=== PATIENT | male | born 1970 | race Caucasian/White ===

== ENCOUNTER 2019-09-09 07:17 | Emergency (ER) | payer MEDICARE ==
[~2019-09-09] VITALS: Ht 182.9 cm; Wt 99.8 kg
--- OUTSIDE RECORDS SUMMARY | ~2019-09-09 | XMS | Clinical Summary ---
Demographics + + + | Address | [address] | | | [place] [address] | + + + | Home Phone | | + + + | Preferred Language | Unknown | + + + | Marital Status | | + + + | Protestant Affiliation | Unknown | + + + | Race | Unknown | + + + | Ethnic Group | Unknown | + + + Author + + + | Author | [facility] | | | and [place] | + + + | Organization | [facility] | | | and [place] | + + + | Address | Unknown | + + + | Phone | Unavailable | + + + Support + + +---------+ + | Name | Relationship | Address | Phone | + + +---------+ + | Karoline | ECON | Unknown | Unavailable | | [place] | | | | + + +---------+ + Care Team Providers + +------+ + | Care Telegraph Dispatcher Name | Role | Phone | + +------+ + PCP | Unavailable | + +------+ + Allergies No Known Allergies Medications + + + +---------+------+------+-------+ | Medication | Sig | Dispensed | Refills | Star | End | Statu | | | | | | t | Date | s | | | | | | Date | | | + + + +---------+------+------+-------+ | azithromycin | Take 4 tablets PO as | 4 | 0 | 08/1 | | Activ | | (ZITHROMAX) 250 mg | a single dose. | tablet | | 1/20 | | e | | tablet | | | | 17 | | | + + + +---------+------+------+-------+ Active Problems Not on file Social History + +-------+ +--------+------+ | Tobacco Use | Types | Packs/Day | Years | Date | | | | | Used | | + +-------+ +--------+------+ | Never Smoker | | | | | + +-------+ +--------+------+ + + + | Sex Assigned at | Date Recorded | | | | + + + | Not on file | | + + + + + + + | Job Start Date | Occupation | Industry | + + + + | Not on file | Not on file | Not on file | + + + + + + + + | Travel History | Travel Start | Travel End | + + + + + + | No recent travel history available. | + + Last Filed Vital Signs + + + + + | Vital Sign | Reading | Time Taken | Comments | + + + + + | Blood Pressure | 128/76 | 11/10/2016 2:50 PM | | | | | PDT | | + + + + + | Pulse | 70 | 11/10/2016 2:50 PM | | | | | PDT | | + + + + + | Temperature | 36.9 C (98.5 F) | 11/10/2016 2:50 PM | | | | | PDT | | + + + + + | Respiratory Rate | 16 | 11/10/2016 2:50 PM | | | | | PDT | | + + + + + | Oxygen Saturation | - | - | | + + + + + | Inhaled Oxygen | - | - | | | Concentration | | | | + + + + + | Weight | 98.9 kg (218 lb) | 11/10/2016 2:50 PM | | | | | PDT | | + + + + + | Height | 180.3 cm (5' 11") | 11/10/2016 2:50 PM | | | | | PDT | | + + + + + | Body Mass Index | 30.4 | 11/10/2016 2:50 PM | | | | | PDT | | + + + + + Plan of Treatment + + + + + | Health Maintenance | Due Date | Last Done | Comments | + + + + + | Vaccine: | | | | | Dtap/Tdap/Td (1 - | 0 | | | | Tdap) | | | | + + + + + | Vaccine: Zoster (1 | | | | | of 2) | 9 | | | + + + + + | Vaccine: Influenza | | | | | (Season Ended) | 0 | | | + + + + + Results Not on filefrom Last 3 Months
--- OUTSIDE RECORDS SUMMARY | ~2019-09-09 | XMS | Encounter Summary ---
Demographics + + + | Address | [address] | | | [place] [address] | + + + | Home Phone | | + + + | Preferred Language | Unknown | + + + | Marital Status | | + + + | Cheondoism Affiliation | Unknown | + + + | Race | Unknown | + + + | Ethnic Group | Unknown | + + + Author + + + | Author | [facility] | | | and [place] | + + + | Organization | [facility] | | | and [...] Team Providers + +------+ + | Care Shellfish Grower Name | Role | Phone | + +------+ + PCP | Unavailable | + +------+ + Encounter Details +--------+ + + + + | Date | Type | Department | Care Team | Description | +--------+ + + + + | 11/10/ | Orders Only | [facility] | Digna Chirinos, | | | 2016 | | [address] | MARKETING STRATEGIST [address] | | | | | [place], [place] | [place] | | | | | [address] | [place] [address] | | | | | [phone] | [phone] | | | | | | | | +--------+ + + + + Social History + +-------+ +--------+------+ | Tobacco [...] recent travel history available. | + + documented as of this encounter Plan of Treatment Not on filedocumented as of this encounter Procedures + +--------+ + + + | Procedure Name | Priori | Date/Time | Associated Diagnosis | Comments | | | ty | | | | + +--------+ + + + | HISTORICAL | Routin | 11/10/2016 | | Results for this | | MICROBIOLOGY RESULT | e | 3:31 PM | | procedure are in the | | | | PDT | | results section. | + +--------+ + + + | OVA AND PARASITE | Routin | 11/10/2016 | | Results for this | | EXAMINATION | e | 3:30 PM | | procedure are in the | | | | PDT | | results section. | + +--------+ + + + | FECAL LEUKOCYTES | Routin | 11/10/2016 | | Results for this | | | e | 3:30 PM | | procedure are in the | | | | PDT | | results section. | + +--------+ + + + | CULTURE, YERSINIA | Routin | 11/10/2016 | | Results for this | | STOOL | e | 3:29 PM | | procedure are in the | | | | PDT | | results section. | + +--------+ + + + | CULTURE, STOOL | Routin | 11/10/2016 | | Results for this | | | e | 3:28 PM | | procedure are in the | | | | PDT | | results section. | + +--------+ + + + documented in this encounter Results HISTORICAL MICROBIOLOGY RESULT (11/10/2016 3:31 PM PDT) + + | Specimen | + + | Stool specimen | | (specimen) | + + + + + | Narrative | Performed At | + + + | GIARDIA ANTIGEN NEGATIVE No Giardia | EXTERNAL LAB | | lamblia antigen detected by ICA | | + + + + +---------+ + + | Performing | Address | City/State/Zipcode | Phone Number | | Organization | | | | + +---------+ + + | EXTERNAL LAB | | | | + +---------+ + + Ova and Parasite Examination (11/10/2016 3:30 PM PDT) + + | Specimen | + + | Stool specimen | | (specimen) | + + + + + | Narrative | Performed At | + + + | Specimen Description STOOL CULTURE | EXTERNAL LAB | | SPECIMEN DESCRIPTION: | | | [facility] | | | NO OVA OR PARASITES SEEN | | + + + + +---------+ + + | Performing | Address | City/State/Zipcode | Phone Number | | Organization | | | | + +---------+ + + | EXTERNAL LAB | | | | + +---------+ + + Fecal leukocytes (11/10/2016 3:30 PM PDT) + + | Specimen | + + | Stool specimen | | (specimen) | + + + + + | Narrative | Performed At | + + + | FECAL WHITE CELLS NONE SEEN NORMAL | EXTERNAL LAB | | RANGE: NONE SEEN to 1+ | | + + + + +---------+ + + | Performing | Address | City/State/Zipcode | Phone Number | | Organization | | | | + +---------+ + + | EXTERNAL LAB | | | | + +---------+ + + Culture, Yersinia Stool (11/10/2016 3:29 PM PDT) + + | Specimen | + + | Stool specimen | | (specimen) | + + + + + | Narrative | Performed At | + + + | Specimen Description STOOL CULTURE | EXTERNAL LAB | | NO YERSINIA SPECIES ISOLATED | | + + + + +---------+ + + | Performing | Address | City/State/Zipcode | Phone Number | | Organization | | | | + +---------+ + + | EXTERNAL LAB | | | | + +---------+ + + Culture, Stool (11/10/2016 3:28 PM PDT) + + | Specimen | + + | Stool specimen | | (specimen) | + + + + + | Narrative | Performed At | + + + | Specimen Description STOOL CULTURE | EXTERNAL LAB | | NEGATIVE FOR SHIGA TOXIN TYPE 1 | | | AND 2. NEGATIVE | | | FOR SALMONELLA, SHIGELLA AND CAMPYLOBACTER | | | IF A VIBRIO IS SUSPECTED, PLEASE CONTACT | | | THE MICRO LAB FOR SPECIAL TESTING. | | + + + + +---------+ + + | Performing | Address | City/State/Zipcode | Phone Number | | Organization | | | | + +---------+ + + | EXTERNAL LAB | | | | + +---------+ + + documented in this encounter Visit Diagnoses Not on filedocumented in this encounter"
--- OUTSIDE RECORDS SUMMARY | ~2019-09-09 | XMS | Encounter Summary ---
Demographics + + + | Address | [address] | | | [place] [address] | + + + | Home Phone | | + + + | Preferred Language | Unknown | + + + | Marital Status | | + + + | Sabianism Affiliation | Unknown | + + + | Race | Unknown | + + + | Ethnic Group | Unknown | + + + Author + + + | Author | [facility] | | | and [place] | + + + | Organization | [facility] | | | [...] Team Providers + +------+ + | Care Field Contact Technician Name | Role | Phone | + +------+ + PCP | Unavailable | + +------+ + Encounter Details +--------+ + + + + | Date | Type | Department | Care Team | Description | +--------+ + + + + | 11/10/ | Orders Only | [facility] | Digna Chirinos, | | | 2016 | | [address] | METAL BED ASSEMBLER [address] | | | | | [place], [place] | [place] | | | | | [address] | [place] [address] | | | | | [phone] | [phone] | | | | | | | [...]
--- OUTSIDE RECORDS SUMMARY | ~2019-09-09 | XMS | Clinical Summary ---
Demographics + + + | Address | [address] | | | [place] [address] | + + + | Home Phone | | + + + | Preferred Language | Unknown | + + + | Marital Status | | + + + | Mandaen Affiliation | Unknown | + + + | Race | Unknown | + + + | Ethnic Group | Unknown | + + + Author + + + | Author | [facility] | | | and [place] | + + + | Organization | [facility] | | [...] Team Providers + +------+ + | Care Sewing Machine Repairer Helper Name | Role | Phone | + [...]
--- NOTE | 2019-09-12 14:51 | CONS ---
[facility] [address], [place] [address] Signed DATE OF CONSULTATION: 09/09/2019 REQUESTING PHYSICIAN: Jose Manuel Forrester MD. PROBLEM: Progressively symptomatic umbilical hernia. HISTORY OF PRESENT ILLNESS: This 48-year-old white man is known to me from the past having undergone bilateral inguinal hernia repair. The patient works partly in [employer] and continues to be active in his work. He has had recurrence of a bulging hernia at the umbilicus, which is exquisitely painful to him. In each case, he has had reduction of the hernia, though sometimes it is somewhat delayed. Indeed, he called my office a few days ago, anticipating evaluation. He is set up for an appointment on this week. He presented to the emergency room today and evaluated by Dr. Forrester due to severe pain of the hernia. Dr. Forrester's thorough evaluation included examination which showed reduction of a hernia in the area of the umbilicus. He was somewhat tender at the time of reduction but with reduction is improved. The patient recounts recurrent episodes of bulging of the hernia at the umbilicus, but with manipulation and in particular lying flat reduction of the hernia is noted. He has had no other particular problem, specifically no urinary outlet obstructive symptoms, chronic cough or constipation. PAST MEDICAL HISTORY: Is as previously described including bilateral inguinal hernia. He is otherwise healthy. REVIEW OF SYSTEMS: Denies any shortness of breath or chest pain. He has had no dysuria or hematuria, urinary hesitancy. Denies constipation or chronic cough. PHYSICAL EXAMINATION: GENERAL: This is a pleasant white man, who looks heavier than the last time I saw in the past few years. NECK: Trachea is midline. CHEST: Shows normal respiratory excursion without tachypnea. HEART: Regular. ABDOMEN: Somewhat obese. There is in lying in the supine position, a palpable hernia Electronically Signed By: ELISABET HAYES MD 09/12/19 1451 PATIENT NAME: DUANE GOOD CONSULTATION DATE OF : 66 REPORT #: [id number] PHYSICIAN: ELISABET HAYES MD PCP: SOLOMON LEPE MD REPORT IS CONFIDENTIAL AND NOT TO BE RELEASED WITHOUT AUTHORIZATION [facility] [address], [place] [address] Signed which with manipulation does reduce. It is slightly tender. There is no sign of erythema. EXTREMITIES: Show no clubbing, cyanosis, or edema. ASSESSMENT: He clearly has a recurrently protruding umbilical hernia. The fascial defect is about two fingerbreadths nearly 3 cm. It is not strictly incarcerated at this time, though it is symptomatic and progressively so. In general terms, I would recommend repair at the earliest possible convenience. Due to his health plan ([facility]), our previous attempts at organizing for repair have been aborted. He is in a health plan that has restrictive access, although the hospitalist contracted with this particular entity and our office is not and has not been so listed to be in the past. He will be discharged anticipating further efforts at administrative review to allow for hernia repair. If not available locally, certainly there would be a surgeon capable of repair in the [facility] system even though it is more than 200 miles away. We will do our best to assist him with this. He will be calling the office and likely keep his appointment scheduled for this week. MD LENNOX Tran/MODL /[id number] cc: MD Solomon Rice MD Copies: JOSE MANUEL FORRESTER MD, RUSSELL BARR MD ~ Electronically Signed By: ELISABET HAYES MD 09/12/19 1451 PATIENT NAME: DUANE GOOD CONSULTATION DATE OF : 66 REPORT #: [id number] PHYSICIAN: ELISABET HAYES MD PCP: SOLOMON LEPE MD REPORT IS CONFIDENTIAL AND NOT TO BE RELEASED WITHOUT AUTHORIZATION
== END 2019-09-09 08:44 | disposition home or self-care (01) ==
LOC: ED 07:17
DX: K42.9 Umbilical hernia without obstruction or gangrene (principal); Z88.8 Allergy status to other drugs, medicaments and biological substances
CPT/HCPCS: 99283

== ENCOUNTER 2019-09-17 08:30 | Day surgery (SDC) | payer MEDICARE ==
[~2019-09-17] VITALS: Ht 180.3 cm; Wt 113.4 kg
--- NOTE | 2019-09-17 11:06 | NUR ---
09/17/19 1106 Sheets,Sharon 1057 PT ARRIVED TO PACU ON 6L VIA MASK, RESP EVEN AND UNLABORED. VSS. ORAL AIRWAY IN PLACE. 1100 PT WAKES TO PAINFUL STIMULI AND STARTS COUGHING. RN BRACING PT ABD AND TOBACCO BUYER AT BEDSIDE AND PULLING ORAL AIRWAY. O2 MASK REMAINS IN PLACE. 1105 PT ASLEEP AND SMALL AMOUNT OF SNORING NOTED. RESP EVEN AND UNLABORED.
--- NOTE | 2019-09-17 11:27 | NUR ---
PT IS BACK TO FROM PACU. HE IS BACK TO HIS BASELINE. HE REPORTS NO PAIN. CALL LIGHT WITHIN REACH. NO ADDITIONAL NEEDS.
--- NOTE | 2019-09-17 12:31 | NUR ---
PT IS TOLERATING ORAL LIQUIDS AND FOOD. WOULD LIKE TO WAIT A LITTLE LONGER TO GO TO THE BATHROOM. CALL LIGHT WITHIN REACH. NO ADDITIONAL NEEDS.
[2019-09-17] MEDS ORDERED: NORCO 5-325 TA1 EACH PO (12:44)
--- NOTE | 2019-09-17 13:45 | NUR ---
KEVIN 1325: PT TURNS ON HIS CALL LIGHT. HE WOULD LIKE TO GET UP AND USE THE RESTROOM. HE REPORTS FEELING LIKE HE EMPTIED HIS BLADDER. PT IS EDUCATED ON HOW TO BEST DRESS HIMSELF AND TO OPEN HIS CURTAIN WHEN HE IS READY TO GO.
--- NOTE | 2019-09-17 13:46 | NUR ---
PT IS GIVEN VERBAL DC INSTRUCTIONS, HE VERBALIZES UNDERSTANDING. QUESTIONS ARE ASKED AND ANSWERED. HE IS TAKEN TO VEHICLE IN WC, HE IS ABLE TO TRANSFER HIMSELF.
--- NOTE | 2019-09-18 07:31 | OR ---
[facility] [address] [place], [place] [address] Signed DATE OF OPERATION: 09/17/2019 SURGEON: Marcos Franco MD PREOPERATIVE DIAGNOSIS: Reducible umbilical hernia (7 mm). POSTOPERATIVE DIAGNOSIS: Reducible umbilical hernia (7 mm). PROCEDURES: Primary umbilical herniorrhaphy with intraabdominal Ventralex mesh (4.3 cm). ESTIMATED BLOOD LOSS: None. INDICATIONS: Duane is a 48-year-old gentleman, who I have known for quite a few years at our local sports teams. His son and my son happened to be the same age. 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 It is heavy work. He has to crawl down tunnels and so forth. He has been through 2 previous inguinal hernia repairs in the past. He is quite familiar with mesh. He was having a cough back in April 2019. He thought ripping and pain at the umbilicus. He said he continues to have symptoms strictly when he is lifting. On three separate occasions, he has had to lay down and reduced the hernia. One day it was quite significant, so he crawled back out of the tunnel, left his partner behind and he went to the emergency room. They were able to reduce the hernia. He finally was asked to see me with respect to the above. In the office, we could certainly feel the hernia, but I was not completely convinced. I reduced the extent that I could feel the fascial edges. I explained to Duane this could be an umbilical hernia or epigastric hernia. Either way would be the same incision and the same repair. I gave him our brochure on hernias and went through it page by page. He understands the nature of an umbilical and/or epigastric hernia. We had reviewed the difference between the primary suture repair and the mesh repair. He understands expected intraop and postop course. There is risk of surgery including, but not limited to bleeding, infection, scarring, change in contour of the skin, damage to the bowel, infection of mesh requiring removal, recurrent hernias, and chronic pain. He had expressed understanding and wished to proceed. PROCEDURE NOTE: I met with Duane in our preop area. We both agreed it was umbilicus and we marked that Electronically Signed By: MARCOS FRANCO MD 09/18/19 0731 PATIENT NAME: DUANE GOOD OPERATIVE REPORT DATE OF : 66 REPORT #: [id number] PHYSICIAN: MARCOS FRANCO MD PCP: SOLOMON LEPE MD REPORT IS CONFIDENTIAL AND NOT TO BE RELEASED WITHOUT AUTHORIZATION [facility] [address], [place] [address] Signed appropriately. After this, Duane was taken into the operating room and placed in supine position under general endotracheal tube anesthesia. He was given preoperative antibiotics along with subcutaneous heparin. SCDs were utilized. He was then prepped and draped in the usual sterile fashion. We utilized our standard infraumbilical transverse incision and carried that down around the umbilicus bluntly and with the cautery. We the hernia sac from the fascia with the help of the cautery. We were able to reduce the fat back into the abdomen. The fascial defect was about 7 mm in diameter. We checked and could not appreciate an epigastric hernia. We used our 4.3 cm round Ventralex mesh and we placed that in the abdomen, brought it up, flushed against the posterior abdominal wall. We closed the fascial defect transversely with a running #1 Prolene suture. Several passes of the suture went through the tab on the mesh to help hold it in place. The tab was then cut, flushed with the abdominal wall and discarded. Local anesthetic was then injected in the abdominal wall and the subcutaneous tissues. The wound was irrigated and suctioned out until clear. The umbilical skin was held down to the midline fascia with an interrupted 2-0 PDS suture. The dermis was reapproximated with interrupted 3-0 subcuticular Monocryl sutures. The skin edges were reapproximated with a running 6-0 fast absorbing plain gut suture. Dry gauze and tape were then applied. Duane was awakened from his anesthesia, extubated in the OR, and taken to recovery room in stable condition. Marcos Franco MD ALB/MODL /[id number] cc: Chart Filed Incomplete MD Solomon Hebert MD Copies: CHART FILED INCOMPLETE MARCOS FRANCO MD Electronically Signed By: MARCOS FRANCO MD 09/18/19 0731 PATIENT NAME: DUANE GOOD OPERATIVE REPORT DATE OF : 66 REPORT #: [id number] PHYSICIAN: MARCOS FRANCO MD PCP: SOLOMON LEPE MD REPORT IS CONFIDENTIAL AND NOT TO BE RELEASED WITHOUT AUTHORIZATION [facility] [address] [facility] [place], [place] [address] Signed SOLOMON LEPE MD ~ Electronically Signed By: MARCOS FRANCO MD 09/18/19 0731 PATIENT NAME: DUANE GOOD SARAI OPERATIVE REPORT DATE OF : 66 REPORT #: [id number] PHYSICIAN: MARCOS FRANCO MD PCP: SOLOMON LEPE MD REPORT IS CONFIDENTIAL AND NOT TO BE RELEASED WITHOUT AUTHORIZATION
== END 2019-09-17 13:45 | disposition home or self-care (01) ==
LOC: DS 08:30
PROVIDERS: Colon & Rectal Surgery
PROC: 0WUF0JZ Supplement Abdominal Wall with Synthetic Substitute, Open Approach (ICD-10-PCS; principal; 2019-09-17 09:45)
DX: K42.9 Umbilical hernia without obstruction or gangrene (principal); Z98.890 Other specified postprocedural states
CPT/HCPCS: 00750; C1781; J0690; J1100; J1644; J1885; J2001; J2405; J2704; J3010; J7121

== ENCOUNTER 2020-02-26 09:05 | Inpatient (IN) | payer MEDICARE ==
[~2020-02-26] VITALS: Ht 180.3 cm; Wt 101.8 kg
[~2020-02-26 09:05] MED LIST: NORCO 5-325 TA1 EACH PO
--- NOTE | 2020-02-26 15:45 | NUR ---
PT ADMITTED TO UNIT VIA STRETCHER JUST AFTER 1500. VSS. SATING 91% ON RA, DENIES SOB AND DESATS TO 88-89% W/ EXERTION. BREATHING APPEARS UNLABORED. HAS HX OF SLEEP APNEA, WILL BRING CPAP TONIGHT. PT C/O DRY COUGH. OTHERWISE DENIES PAIN AND NAUSEA. AFEBRILE. VSS. WORKING ON ACAPELLA AND IS. PLACED ON 1 L O2 VIA NC FOR SATS >90%. CALL LIGHT IN REACH. RT TO EVALUATE. UNABLE TO LISTEN TO LUNG SOUNDS D/T PAPR.
--- NOTE | 2020-02-26 17:30 | NUR ---
PT UP TO CHAIR TO EAT DINNER. RT INCREASED O2 TO 2L NC, NOW SATING 93-95%. VSS. BILAT CRACKLES HEARD IN BASES PER RT. PT HAS BEEN ON TELE AND INDEPENDENT IN ROOM. VOIDS IN IN URINAL BUT USES BATHROOM NEEDED.
--- NOTE | 2020-02-26 20:15 | NUR ---
SITTING UP IN CHAIR. USING ACAPELLA AND IS ON OWN. INDEPENDENT IN ROOM.
--- NOTE | 2020-02-26 21:06 | NUR ---
WAS GIVEN ROBITUSSIN WITH CODEINE FOR DRY COUGH.
--- NOTE | 2020-02-26 23:11 | NUR ---
SLEEPING WITH CPAP IN PLACE.
--- NOTE | 2020-02-27 00:05 | NUR ---
PT SLEEPING SOUNDLY WITH CPAP IN PLACE WITH 2L OXYGEN BLED IN. SATS DEC TO 85%. PT AWAKENED AND ASKED TO TURN TO SIDE. ALSO 02 INC TO 3L. SATS UP TO 95% WHEN AWAKENED.
--- NOTE | 2020-02-27 01:00 | NUR ---
IS AWAKE BUT WITH CPAP IN PLACE. LAYING ON SIDE. SATS 94-96%.
--- NOTE | 2020-02-27 03:26 | NUR ---
IS SLEEPING ON BACK , CPAP IN PLACE. SAT5 92-93%, 3L OXYGEN BLED IN.
--- NOTE | 2020-02-27 05:30 | NUR ---
PT AWAKE, CONT TO HAVE CPAP IN PLACE IN CASE HE GOES TO SLEEP. PT STATED THAT WHEN HE DESATURATED EARLIER HE FOUND THAT THE 02 TUBING WHERE BLED INTO HIS CPAP HAD COME OFF AND HE PUT IT BACK. LABS DRAWN. VERY TALKATIVE.
--- NOTE | 2020-02-27 08:30 | NUR ---
IN TO GIVE MORNING MEDS AND COMPLETED ASSESSMENT. PT SATING 97% ON 3L NC. BREATHING APPEARS UNLABORED. PT DENIES PAIN, SOB, OR NAUSEA. WEANED DOWN TO 1 L NC, SATING 96%. PT UP ON COUCH EATING BREAKFAST. EATING AND DRINKING WELL. VOIDS IN URINAL IN BATHROOM. 20 G IV IN LFA PATENT, REMDESIVIR INFUSION COMPLETE. PT HAS NO OTHER NEEDS AT THIS TIME. INDEPENDENT IN ROOM. CALL LIGHT IN REACH.
--- NOTE | 2020-02-27 10:05 | NUR ---
PT HAS BEEN ON ROOM AIR FOR APPROX 30 MIN. SATING 94-96%. SAYS HE "FEELS GOOD". STILL HAS A DRY, UNPRODUCTIVE COUGH. RR 16-20. NO ACCESSORY MUSCLE USE NOTED. PT UP AND WALKING AROUND. DR SR HAS BEEN IN TO ASSESS PT THIS MORNING. PT IS WITHOUT COMPLAINT AT THIS TIME.
--- NOTE | 2020-02-27 12:27 | NUR ---
PT UP WALKING AROUND ROOM, TALKING ON PHONE. REFUSED LUNCH. SAYS HE WAS ON DIET AT HOME WHERE HE WAS EATING ONLY ONE MEAL A DAY AND WOULD FAST THE REMAINDER OF THE TIME. DENIES PAIN, OR NAUSEA. STILL HAS OCCASIONAL DRY NON-PRODUCTIVE COUGH. RECEIVED TESSLON PERLES THIS MORNING BUT HAS NOT REQUIRED OTHER COUGH SUPPRESSANTS AT THIS TIME. HOLDING OFF ON BED BATH FOR POSSIBLE ROOM CHANGE WITH A SHOWER. NO FURTHER NEEDS AT THIS TIME. CALL LIGHT IN REACH
[2020-02-27] MEDS ORDERED: MULTI VITAMIN1 EACH PO (14:17)
--- NOTE | 2020-02-27 14:17 | NUR ---
MED REC COMPLETE
--- NOTE | 2020-02-27 15:29 | NUR ---
PT UP IN CHAIR. VSS. AFEBRILE. PT REMAINS ON RA SATING 97%. RR 20. UNLABORED BREATHING, NO ACCESSORY MUSCLE USE. PT CONTINUES TO WORK WITH I.S. AND ACAPELLA EVERY HOUR. OCCASIONAL COUGH. NOTIFIED IT IS LIKELY HE WILL BE MOVED TO A ROOM WITHI A SHOWER. PT REFUSING DINNER SAYING HE WOULD LIKE TO CONTINUE FASTING TIL BREAKFAST TOMORROW. DENIES NAUSEA OR PAIN. REPORTS HE'S CONTENT AT THE MOMENT. INDEPENDENT IN ROOM.
--- NOTE | 2020-02-27 17:02 | NUR ---
Spoke with Aidan. He states he plans to go home when remdesivir complete. He was tested x 2 for covid as he did not feel he was +. After the second test he became sick. Other around him have been ill, so he has been isolating. Denies needs to go home. Off 02 all day today.
--- NOTE | 2020-02-27 18:28 | NUR ---
pt moved to 126. Tele removed for shower. Pt has had a good day and remains without complaints. Denies any nausea or pain. Has had an occasional cough throughout the day, appears to be more prompted by pt talking. In shower now and calls appropriately.
--- NOTE | 2020-02-27 20:00 | NUR ---
RECEIVED REPORT FROM [facility]. pt RESTING IN BED, WATCHING TV. O2 SATS 88% SUSTAINED ON ROOM AIR. NOTIFIED pt. UP WALKING, USED IS AND CPT. O2 SATS INCREASED 94%. ENCOURAGED pt TO SIT UP MORE WHILE RESTING. pt DENIED NEEDS AT THIS TIME. REQUESTED PRN COUGH MEDICATION AT 2100. EMPTIED URINAL. CALL LIGHT WITHIN REACH. DR TRUIJLLO ON UNIT, UPDATED, STATED NO NEED TO ECG MONITORING JUST CPOX.
--- NOTE | 2020-02-27 21:15 | NUR ---
IN TO DO ASSESSMENT. pt WALKING AROUND TALKING ON THE PHONE. DISCUSSED RESPIRATORY CARE. pt VERBALIZED UNDERSTANDING OF PRONING. ASSESSMENT DONE. PRN COUGH MED PER REQUEST. pt HAS DRY COUGH. SETTLED FOR THE NIGHT. NO FURTHER REQUESTS AT THIS TIME. CALL LIGHT WITHIN REACH.
--- NOTE | 2020-02-28 00:28 | NUR ---
ROUNDED ON pt. RESTING ON LEFT SIDE, CPAP ON. CALL LIGHT WITHIN REACH. O2 SAT <94% FOR APPROX 1 HOUR, INCREASED AFTER CHECKING ON pt.
--- NOTE | 2020-02-28 00:44 | NUR ---
REASSESSED pt. O2 SATS REMAIN LESS THAN 94% ON ROOM AIR WITH CPAP. BLED IN 2L O2 VIA CPAP. O2 SAT 94%. pt WOKE TO NOISE, NO REQUESTS AT THIS TIME. CALL LIGHT WITHIN REACH.
--- NOTE | 2020-02-28 01:22 | NUR ---
O2 SAT 95% ON 2L VIA CPAP.
--- NOTE | 2020-02-28 03:21 | NUR ---
ROUNDED ON pt. RESTING IN BED WITH EYES CLOSED, CPAP IN PLACE. O2 SAT 95% WITH 2L. CALL LIGHT WITHIN REACH.
--- NOTE | 2020-02-28 04:55 | NUR ---
O2 SAT <90%. OPENED DOOR TO ROOM, pt WOKE SAT IMMEDIATELY INCREASED, pt TO TRY SLEEPING IN A DIFFERENT POSITION, WAS FLAT ON BACK. CALL LIGHT WITHIN REACH.
--- NOTE | 2020-02-28 06:00 | NUR ---
IN TO DO ASSESSMENT. pt RESTING IN BED WORKING ON PHONE. CPAP ON. ASSESSMENT DONE. URINAL EMPTIED, VITALS RECORDED. TALKED ABOUT PLAN OF CARE AND pt's EMPLOYMENT FOR SOME TIME. NO CHANGES FROM PRIOR ASSESSMENT. NO REQUESTS AT THIS TIME. CALL LIGHT WITHIN REACH.
--- NOTE | 2020-02-28 07:47 | NUR ---
REPORT RECEIVED FROM NIGHTSHIFT RN, WILL CONTINUE PLAN OF CARE.
--- NOTE | 2020-02-28 08:00 | NUR ---
Patient laying in bed with CPAP in place with 2L bleed-in. SpO2 in the mid-90's, RR even and unlabored. Patient independent in room, ambulating with no SOB noted. Up to chair for breakfast. Warm cloth provided to wash face. Vital signs taken. Water refreshed, patient denies further needs at this time. Call light within reach.
--- NOTE | 2020-02-28 09:04 | NUR ---
PT WAS WALKING AROUND ON ROOM AIR ALERT AND ORIENTED IN ROOM. PT REPORTS NO PAIN AT THIS TIME AND NO SHORTNESS OF BREATH. MEDICATIONS ADMINISTERED AND PT STARTED ON IV REMDESIVIR AT ORDERED RATE. PT REPORTS NO FURTHER NEEDS AT THIS TIME. PT STATES HE HAS BEEN PRONING AND USING RESPIRATORY DEVICES. BED IN LOWEST POSITION, CALL LIGHT WITHIN REACH, WILL CONTIUE PLAN OF CARE.
--- NOTE | 2020-02-28 11:11 | NUR ---
IV REMDESIVIR COMPLETE, PT SALINE LOCKED. PT REPORTS NO PAIN OR SHORTNESS OF BREATH AT THIS TIME. LINENS WERE CHANGED WHILE PT. TOOK A SHOWER. PT NEEDED NO ASSISTANCE AND IS NOW BACK IN HIS BEDROOM. PT REPORTS NO NEEDS AFTER SHOWER. PT STATED HE WILL BE SKIPPING LUNCH. WILL CONTINUE PLAN OF CARE.
--- NOTE | 2020-02-28 12:17 | NUR ---
PT STANDING UP LOOKING OUT OF WINDOW WHEN CHECKED ON. PT REPORTS NO PAIN OR SHORTNESS OF BREATH. PT STATED THAT HE DID SOME EXERCISES AFTER GETTING OUT OF THE SHOWER SUCH JUMPING JACKS AND PUSHUPS AND WALL CLIMBERS. PT STATED WHEN HE CHECKED HIS SPO2 IT WAS AT 88%. THIS WAS DONE WHILE ON ROOM AIR. PT REPORTED NO FEELINGS OF LIGHTHEADEDNESS OR SHORTNESS OF BREATH WHILE DOING THEM AND ONLY NOTICED HIS LOW SPO2 BECAUSE HE HAD CHECKED HIS TELEMETRY. PT NOW SITTING AT BEDSIDE CHAIR ON THE PHONE. HE REPORTS NO FURTHER NEEDS AND HAS REFUSED LUNCH DUE TO HIS DIETARY PRACTICE OF FASTING. WILL CONTINUE PLAN OF CARE.
--- NOTE | 2020-02-28 15:17 | NUR ---
PT SITTING AT BEDISDE CHAIR LOOKING OUTSIDE OF WINDOW. PT ALERT AND ORIENTED ON ROOM AIR. PT REPORTS NO SHORTNESS OF BREATH OR DIFFICULTY BREATHING AT THIS TIME. PT STATES HE HAS BEEN PRONING AND USING HIS RESPIRATORY DEVICES ON HIS OWN. PT REPORTS NO PAIN AT THIS TIME. PT REPORTS NO FURTHER NEEDS AT THIS TIME ASIDE FROM WATER WHICH HAS BEEN GIVEN. WILL CONTINUE PLAN OF CARE.
--- NOTE | 2020-02-28 18:40 | NUR ---
PT CHECKED ON. PT SITTING IN BEDSIDE CHAIR AWAKE AND ALERT. PT REPORTS NO NEEDS ASIDE FROM MORE WATER WHICH WAS OBTAINED FOR HIM. PT AWAKE, ALERT, ON ROOM AIR AND REPORTS NO FURTHER NEEDS. WILL CONTINUE PLAN OF CARE.
--- NOTE | 2020-02-28 19:20 | NUR ---
report recieved from [facility] rn. care of patient assumed at this time. Pt in bed watching television, spo=94% on room air. denies needs at this time.
--- NOTE | 2020-02-28 21:15 | NUR ---
IN ROOM TO COMPLETE ASSESSMENT AND FOR MEDICATION ADMINISTRATION. PT ALERT AND ORIENTED. DENIES NAUSEA OR SHORTNESS OF BREATH. GIEN PRN MEDICATION FOR COUGH. PT PLACED ON CPAP AT THIS TIME WITH 2 L OF 02 BLED INTO HOME MACHINE. SPO2 94 PERCENT AT THIS TIME. REFILLED PT WATER. PLAN OF CARE FOR EVENING DISCUSSED. CALL LIGHT WITHIN REACH. NO FURTHER NEEDS AT THIS TIME.
--- NOTE | 2020-02-29 | NUR ---
PT SLEEPING. CPAP IN PLACE. BREATHING EVEN AND UNLABORED RR=16. SPO2 IN THE MID 90'S. CALL LIGHT WITHIN REACH. NO FURTHER ASSESSED NEEDS AT THIS TIME.
--- NOTE | 2020-02-29 02:00 | NUR ---
PT ASLEEP. RESPIRATIONS OBSERVED. BREATHING EVEN AND UNLABORED. RR =18 SPO2 = 94 PERCENT ON 2 L CPAP.
--- NOTE | 2020-02-29 04:45 | NUR ---
PT UP TO BATHROOM INDEPENDENTLY AND THEN BACK IN BED. ON TELEPHONE AT THIS TIME. DENIES ANY NEEDS. CALL LIGHT WITHIN REACH.
--- NOTE | 2020-02-29 06:14 | NUR ---
IN ROOM TO COMPLETE ASSESSMENT AND DRAW AM LABS. PT AWAKE IN ROOM. STATES HE SLEPT WELL. BLOOD DRAW WELL TOLERATED BY PT. LUNGS SOUND CLEAR THROUGH OUT. BREAKFAST ORDERED. CALL LIGHT WITHIN REACH. NO FURTHER NEEDS AT THIS TIME.
--- NOTE | 2020-02-29 07:27 | NUR ---
REPORT RECEIVED FROM NIGHTSHIFT RN, WILL CONTINUE PLAN OF CARE.
--- NOTE | 2020-02-29 08:40 | NUR ---
PT SITTING UP ALERT AND ORIENTED EATING BREAKFAST. PT REPORTS NO PAIN WHEN ASKED AND NO SHORTNESS OF BREATH OR DIFFICULTY BREATHING. PT IV REMDESIVIR COMPLETE, PT SALINE LOCKED. PT STATES HE PLANS ON DOING MORE BREATHING EXERCISES TODAY TO CONTINUE TO IMPROVE HIS BREATHING. PT REPORTS NO FURTHER NEEDS AT THIS TIME. BED IN LOWEST POSITION, CALL LIGHT WITHIN REACH, WILL CONTINUE PLAN OF CARE.
--- NOTE | 2020-02-29 12:32 | NUR ---
PT SITTING AT BEDSIDE CHAIR LOOKING OUT OF WINDOW. PT IS ALERT AND ORIENTED. PT ASSESSED. PT REPORTS NO SHORTNESS OF BREATH OR DIFFICULTY BREATHING EVEN WHEN ACTIVE. PT REPORTS NO PAIN WHEN ASKED. PT REPORTS NO NEEDS AT THIS TIME, WILL CONTINUE PLAN OF CARE.
--- NOTE | 2020-02-29 14:05 | NUR ---
AFTER BEING ASSESSED BY DR TRUJILLO AND BEING UPDATED ON POC PT WAS ABLE TO GO OUT FOR A WALK. PPE PRECAUTIONS WERE FOLLOWED AND PT WAS ABLE TO WALK OUTSIDE AROUND THE HOSPITAL FOR 10 MIN, THIS RN WAS WITH HIM DURING THAT TIME. PT REPORTED NO SHORTNESS OF BREATH THROUGHOUT THE WALK AND MAINTAINED A STEADY PACE. SPO2 ON TELEMETRY WAS ASSESSED THROUGHOUT WALK AND PT MAINTAINED AT 96-97% THROUGHOUT THE ENTIRE WALK. PT NOW IN ROOM RESTING AND REPORTS NO SHORTNESS OF BREATH OR DYSPNEA. WILL CONTINUE PLAN OF CARE.
[2020-02-29] MEDS ORDERED: DEXAMETHASONE6 MG PO (15:02)
--- NOTE | 2020-02-29 16:10 | NUR ---
PT SITTING UP IN BED AND HAD JUST FINISHED A NEB TREATMENT WITH RT. RT TURNED THE PT'S OXYGEN DOWN TO 3LPM. PT ASSESSED AND REPORTS NO PAIN OR SHORTNESS OF BREATH AT THIS TIME. PT SPO2 AT 95-96% WHILE ON 3L ON THE HIGH FLOW NC. PT REPORTS NO FURTHER NEEDS AT THIS TIME. CALL LIGHT IN REACH, BED IN LOWEST POSITION, WILL CONTINUE PLAN OF CARE.
--- NOTE | 2020-02-29 16:33 | NUR ---
PT AWAKE AND ALERT SITTING AT BEDSIDE CHAIR. PT REPORTS NO PAIN OR SHORTNESS OF BREATH. PT PACING AROUND ROOM WITHOUT DIFFICULTY NOW. PT ASSESSED. NO FURTHER NEEDS REPORTED. IV FLUSHED, AND WAS PATENT. PT ON ROOM AIR SPO2 AT 93%. WILL CONTINUE PLAN OF CARE.
--- NOTE | 2020-02-29 19:30 | NUR ---
REPORT RECIEVED. CARE OF PATIENT ASSUMED AT THIS TIME.
--- NOTE | 2020-02-29 20:15 | NUR ---
RT IN ROOM TO ASSESS PATIENT AT THIS TIME.
--- NOTE | 2020-02-29 21:29 | NUR ---
in room to complete assessment and for medication administration. pt in good spirits, wants to go home in AM. spo2 96 percent on room air. complains of dry cough. prn medication given at this time. lungs are clear. Plan of care established. pt denies further needs.
--- NOTE | 2020-02-29 21:30 | NUR ---
water provided to pt per rn, pt has no further needs at this time
--- NOTE | 2020-02-29 23:53 | NUR ---
IN TO CHANGE TELE BATTERY, PT UP TO VOID AT THIS TIME, NO FURHTER NEEDS AT THIS TIME
--- NOTE | 2020-03-01 02:00 | NUR ---
pt asleep. spo2 = 95 percent on cpap with 2 l o2 bled in. hr in the 50s. no assessed needs at this time.
--- NOTE | 2020-03-01 04:00 | NUR ---
pt up to bathroom and back to bed. Provided water. no further needs at this time.
--- NOTE | 2020-03-01 06:05 | NUR ---
GOT TEMP FROM RN AND PUT VITALS IN FOR RN,
--- NOTE | 2020-03-01 06:17 | NUR ---
IN ROOM FOR ASSESSMENT AND LAB DRAW. PT AWAKE IN ROOM ON TELEPHONE. BLOOD DRAW WELL TOLERATED. DENIES FURTHER NEEDS AT THIS TIME
--- NOTE | 2020-03-01 07:57 | NUR ---
REPORT RECEIVED FROM NIGHTSHIFT RN, WILL CONTINUE PLAN OF CARE.
--- NOTE | 2020-03-01 08:42 | NUR ---
pt. had breakfast and is now in the shower
--- NOTE | 2020-03-01 09:17 | NUR ---
PT SITTING AT BEDSIDE AWAKE AND ORIENTED. PT HAD JUST FINISHED TAKING A SHOWER, SPO2 MAINTAINED AT 93-94% ON ROOM AIR. PT REPORTS NO SHORTNESS OF BREATH AND HAS AN OCCASIONAL DRY COUGH. PT REPORTS NO PAIN WHEN ASKED. IV REMDESIVIR INFUSING ORDERED. PT NOW LAYING IN BED RESTING AND REPORTS NO FURTHER NEEDS. WILL CONTINUE PLAN OF CARE. BED IN LOWEST POSITION, CALL LIGHT WITHIN REACH.
--- NOTE | 2020-03-01 09:55 | NUR ---
Called and spoke Claudio and Shamir for 02. They are in need of a chart and 02 qualifier. Rx completed by Dr. Wallis and he entered order for 02 qualifier.
--- NOTE | 2020-03-01 10:22 | NUR ---
PT REMDESIVIR COMPLETE. PT SALINE LOCKED. RT IN ROOM TO ASSESS PT. PT REPORTS NO SHORNTESS OF BREATH AND IS ON ROOM AIR. SPO2 AT 96% AT THIS TIME. PT REPORTS NO FURTHER NEEDS ASIDE FROM WATER WHICH WAS GIVEN. WILL CONTINUE PLAN OF CARE. BED IN LOWEST POSITION, CALL LIGHT WITHIN REACH.
[2020-03-01] MEDS ORDERED: GUAIFENESIN AC473 ML PO (12:05)
--- NOTE | 2020-03-01 13:16 | NUR ---
PT AWAKE AND ORIENTED. IV CATHETER REMOVED PER PROTOCOL. IV WAS INTACT, PT TOLERATED WELL. PT EDUCATED ON DISCHARGE INSTRUCTIONS AND VERBALIZED UNDERSTANDING. PT EDUCATED ON MEDICATIONS AND NEW PRESCRIPTIONS AND QUESTIONS WERE ANSWERED. PT TAKEN TO CAR VIA WHEELCHAIR AND WAS ABLE TO AMBULATE INTO CARE WITHOUT ANY ASSISTANCE. PT HAD ALL BELONGINGS WITH HIM IN A BAG. DC INSTRUCTIONS AND PRESCRIPTION WITH HIM IN BAG.
--- NOTE | 2020-03-01 14:29 | NUR ---
CHECKING ON PT-INFORMED HE IS UNDER PRECAUTIONS. UNABLE TO VISIT IN PERSON, WILL FOLLOW NEEDED
== END 2020-03-01 13:00 | disposition home or self-care (01) | DRG 177 ==
LOC: ED 09:05 → CCU 12:52
PROVIDERS: ADMIT Internal Medicine; ATTEND Internal Medicine
PROC: XW033E5 Introduction of Remdesivir Anti-infective into Peripheral Vein, Percutaneous Approach, New Technology Group 5 (ICD-10-PCS; principal; 2020-02-26)
PROC: 5A09357 Assistance with Respiratory Ventilation, Less than 24 Consecutive Hours, Continuous Positive Airway Pressure (ICD-10-PCS; 2020-02-26)
PROC: XW033E5 Introduction of Remdesivir Anti-infective into Peripheral Vein, Percutaneous Approach, New Technology Group 5 (ICD-10-PCS; 2020-02-27)
PROC: XW033E5 Introduction of Remdesivir Anti-infective into Peripheral Vein, Percutaneous Approach, New Technology Group 5 (ICD-10-PCS; 2020-02-28)
PROC: XW033E5 Introduction of Remdesivir Anti-infective into Peripheral Vein, Percutaneous Approach, New Technology Group 5 (ICD-10-PCS; 2020-02-29)
PROC: XW033E5 Introduction of Remdesivir Anti-infective into Peripheral Vein, Percutaneous Approach, New Technology Group 5 (ICD-10-PCS; 2020-03-01)
DX: U07.1 COVID-19 (principal); J12.89 Other viral pneumonia; J96.01 Acute respiratory failure with hypoxia; G47.33 Obstructive sleep apnea (adult) (pediatric); Z88.8 Allergy status to other drugs, medicaments and biological substances
CPT/HCPCS: 71045; 80053; 83605; 83880; 85025; 85379; 94640; 94667; 94668; 94761; 96374; 96375; 99285-25; J1100; J1650; J7050; J8540